=== PATIENT | female | born 1995 | race African-American/Black ===

== ENCOUNTER 2018-11-07 16:08 | Emergency (ER) | payer SELFPAY | END 2018-11-07 16:58 | disposition home or self-care (01) | LOC: NAV ERS 16:08 | DX: J01.90 Acute sinusitis, unspecified (principal) | CPT/HCPCS: 99282 ==

== ENCOUNTER 2019-04-20 09:06 | Emergency (ER) | payer SELFPAY ==
--- NOTE | 2019-04-20 09:40 | RAD ---
EXAM: Chest 2 views: HISTORY: Congestion and cough COMPARISON: None. FINDINGS: There is a normal-sized cardiomediastinal silhouette. There is no evidence of consolidation, mass, or pleural effusion. The bones are unremarkable. IMPRESSION: No evidence of acute cardiopulmonary disease
== END 2019-04-20 10:10 | disposition home or self-care (01) ==
LOC: NAV ERS 09:06
DX: J20.9 Acute bronchitis, unspecified (principal)
CPT/HCPCS: 71046

== ENCOUNTER 2019-05-04 04:19 | Emergency (ER) | payer SELFPAY ==
[2019-05-04 05:34] LABS: Bilirubin Negative (Negative); Blood, Urine Negative (Negative); Clarity Clear (Clear); Glucose, Urine (Dipstick) Negative (Negative); Leukocyte Negative (Negative); Nitrite Negative (Negative); Protein, Urine (Dipstick) Negative (Neg-Trace); Urobilinogen 0.2 mg/dL (Less than 2)
[2019-05-04 05:35] LABS: Pregnancy Test - Urine (BHCG) Negative (Negative); Pregu Control Background? CLEAR/WHITE (CLR/WHITE); Pregu Control Bar Appear? YES (CONTROL BAR); Specific Gravity 1.025 (1.002-1.036)
[2019-05-04 05:39] LABS: Amphetamine Not Detected (NotDetected); Barbiturates Screen Not Detected (NotDetected); Benzodiazepine Screen Not Detected (NotDetected); Cocaine Metabolite Screen Not Detected (NotDetected); Medtox Control Line Valid? VALID (VALID); Methadone Not Detected (NotDetected); Methamphetamine Not Detected (NotDetected); Opiate Screen Not Detected (NotDetected); Oxycodone Screen Not Detected (NotDetected); Phencyclidine (PCP) Not Detected (NotDetected); THC/Cannabinoid Screen Not Detected (NotDetected); Tricyclic Screen Not Detected (NotDetected)
[2019-05-04 05:43] LABS: #Basophils 0.2 thou/uL (0.0-0.2); #Lymphocytes 2.6 thou/uL (1.20-3.40); #Monocytes 1.2 thou/uL (0.11-0.59); #Neutrophils 5.8 thou/uL (1.40-6.50); %Basophils 2.4 % (0.0-1.0); %Eosinophils 0.1 % (0.0-10.0); %Lymphocytes 26.4 % (21.0-51.0); %Monocytes 12.2 % (0.0-10.0); %Neutrophils 58.9 % (42.0-75.0); Hemoglobin 12.4 g/dL (12.0-16.0); Hypochromia SLIGHT = 6-15 cells (100X) (0-5/hpf); MDiff Complete? YES; Mean Corpuscular HGB CONC 30.6 g/dL (32.0-36.0); Mean Corpuscular Hemoglobin 23.8 pg (27.0-31.0); Mean Corpuscular Volume 77.9 fL (78.0-98.0); Mean Platelet Volume 8.7 fL (7.4-10.4); Microcytosis SLIGHT = 6-15 cells (100X) (0-5/hpf); Platelet Count 350 thou/uL (130-400); Platelet Morphology Comment Appears Adequate; RBC Distribution Width 12.9 % (11.5-14.5); Red Blood Cell (RBC) Count 5.21 mill/uL (4.20-5.40); White Blood Cell (WBC) Count 9.8 thou/uL (4.8-10.8)
[2019-05-04 05:45] LABS: Acetaminophen Less than 6.0 mcg/mL (10.0-30.0); Alcohol Less than 10 mg/dL (Less than 10); Salicylate Less than 8.0 mg/dL (15.0-30.0)
[2019-05-04 05:47] LABS: ALT (SGPT) 69 U/L (8-55); AST (SGOT) 30 U/L (5-34); Alkaline Phosphatase 72 U/L (40-110); Anion Gap 16 mmol/L (10-20); BUN (Urea Nitrogen) 14 mg/dL (7.0-18.7); Bilirubin, Total 0.3 mg/dL (0.2-1.2); Calc. Creatinine Clearance 0 mL/min (70-130); Calcium 9.8 mg/dL (7.8-10.44); Carbon Dioxide 21 mmol/L (22-29); Chloride 102 mmol/L (98-107); Estimated GFR-MDRD Greater than 90; Globulin 3.8 g/dL (2.4-3.5); Glucose 104 mg/dL (70-105); Potassium 3.9 mmol/L (3.5-5.1); Protein, Total 7.8 g/dL (6.0-8.3); Sodium 135 mmol/L (136-145)
--- NOTE | 2019-05-04 06:55 | CT ---
CTA CHEST WITH CONTRAST: Date: 05/04/2019 HISTORY: Shortness of breath. Bronchitis diagnosed 2 weeks ago. Dyspnea. TECHNIQUE: Multiple contiguous axial images were obtained in a CTA of the chest with contrast per pulmonary embo lism protocol. 3D oblique MIP reformats and direct coronal reformats were performed. FINDINGS: This exam is limited secondary to poor timing of the contrast bolus. No pulmonary emboli are seen in the central pulmonary arteries. The segmental and subsegmental arteries cannot be adequately evaluate d. The heart is normal in size without focal cardiac abnormality. No hilar or mediastinal lymphadenopath y seen. Soft tissue emphysema anterior mediastinum likely to represent residual thymus. No focal infiltrates or pulmonary nodules are seen. No pneumothorax or pleural effusions are seen. The osseous structures and visualized subdiaphragmatic structures are unremarkable. The chest wall so ft tissues are unremarkable. IMPRESSION: No evidence of pulmonary thromboembolism on this limited exam. POS: [facility]
[2019-05-04] MEDS ORDERED: Ketorolac Tromethamine 30 MG/ML VIAL ONE (07:26)
[2019-05-04] MEDS ORDERED: Sodium Chloride 0.9% 1,000 ML ONE (07:26)
[2019-05-04] MEDS ORDERED: Iopamidol 370 76% 100 ML VIAL ONE (09:00)
== END 2019-05-04 08:26 | disposition short-term general hospital (02) ==
LOC: NAV ERS 04:19
DX: R00.0 Tachycardia, unspecified (principal)
CPT/HCPCS: 71275; 80053; 80306; 80307; 81003; 81025; 83605; 84443; 84484; 85025; 93005; 96360; 96361; J1885; J7050; Q9967

== ENCOUNTER 2020-07-16 05:34 | Emergency (ER) | payer MEDICAID | END 2020-07-16 06:24 | disposition home or self-care (01) | LOC: NAV ERS 05:34 | DX: K08.89 Other specified disorders of teeth and supporting structures (principal) | CPT/HCPCS: 99282 ==

== ENCOUNTER 2020-09-14 07:06 | Emergency (ER) | payer MEDICAID ==
[2020-09-14 15:41] LABS: SARS-CoV-2 PCR by NAA Not Detected (NotDetected)
== END 2020-09-14 08:34 | disposition home or self-care (01) ==
LOC: NAV ERS 07:06
DX: J02.9 Acute pharyngitis, unspecified (principal); Z20.822 Contact with and (suspected) exposure to COVID-19
CPT/HCPCS: 87081; 87430; 87635; 99283; U0003; U0005

== ENCOUNTER 2020-11-16 22:04 | Emergency (ER) | payer OTHER, MEDICAID ==
[2020-11-16] MEDS ORDERED: Ondansetron ODT 4 MG TAB ONE (22:25)
[2020-11-16] MEDS ORDERED: Ibuprofen 200 MG TAB ONE (22:25)
[2020-11-17 16:24] LABS: SARS-CoV-2 PCR by NAA Not Detected (NotDetected)
== END 2020-11-16 23:05 | disposition home or self-care (01) ==
LOC: NAV ERS 22:04
DX: B34.9 Viral infection, unspecified (principal); Z20.822 Contact with and (suspected) exposure to COVID-19
CPT/HCPCS: 71045; Q0162; U0003; U0005

== ENCOUNTER 2021-06-20 14:11 | Emergency (ER) | payer BC, MEDICAID, OTHER | END 2021-06-20 15:00 | disposition home or self-care (01) | LOC: NAV ERS 14:11 | DX: J01.10 Acute frontal sinusitis, unspecified (principal); Z79.899 Other long term (current) drug therapy | CPT/HCPCS: 99283 ==

== ENCOUNTER 2021-10-15 22:22 | Emergency (ER) | payer BC | END 2021-10-15 23:00 | disposition home or self-care (01) | LOC: NAV ERS 22:22 | DX: R50.9 Fever, unspecified (principal); J06.9 Acute upper respiratory infection, unspecified; Z20.822 Contact with and (suspected) exposure to COVID-19; Z79.899 Other long term (current) drug therapy | CPT/HCPCS: 87804; 99283; U0003; U0005 ==